=== PATIENT | male | born 1975 | race Hispanic/Latino ===

== ENCOUNTER 2016-12-01 08:01 | Emergency (ER) | payer OTHER ==
[~2016-12-01] VITALS: Ht 182.9 cm; Wt 77.1 kg
[~2016-12-01 08:01] MED LIST: FLEXERIL10 MG PO; GOOD SENSE IBU200 MG PO; HYDROCHLOROTHIA25 M1 PO; HYDRODIURIL 2525 MG PO; LOPRESSOR50 M1 PO; MEDROL4 MG PO; METOPROLOL TART50 MG PO; MOTRIN800 MG PO; NORCO 325 MG-51 TAB PO; NORCO 5-325 TA1 EACH PO; NORVASC10 M1 PO; OXYCONTIN10 MG PO; PROAIR HFA0.09 MG/Ac INH
[2016-12-01 08:04] VITALS: BP 165/90
--- NOTE | 2016-12-01 08:15 | ED EYE COMPLAINT ---
History of Present Illness General Chief Complaint: Eye Problems Stated Complaint: LFT EYE FB AT WORK ? METAL Source: patient, old records Exam Limitations: no limitations Vital Signs & Intake/Output Vital Signs & Intake/Output Vital Signs Date Time Temp Pulse Resp B/P B/P Pulse O2 O2 Flow FiO2 Mean Ox Delivery Rate 12/01 0804 97.8 86 16 165/90 97 Room Air Allergies Coded Allergies: morphine (ITCHING 12/01/16) acetaminophen (From PERCOCET) (Intermediate, NAUSEA 02/02/16) oxycodone (From PERCOCET) (Intermediate, NAUSEA 02/02/16) Reconcile Medications Acetaminophen/Hydrocodone Bi ([place] 325 MG-5 MG) 1 TAB TAB 1 TAB PO Q6HR PRN BREAKTHROUGH PAIN Albuterol Sulfate (Proair Hfa) 0.09 MG/Actuation HANNA 2 PUFF INH DAILY PRN ASTHMA (Reported) Amlodipine Besylate (Norvasc) 10 MG TABLET 1 TAB PO DAILY HTN CYCLOBENZAPRINE HCL (Flexeril) 10 MG TABLET 1 TAB PO TID PAIN Hydrochlorothiazide (Hydrodiuril 25 MG Tab) 25 MG TABLET 1 TAB PO DAILY BP ( Reported) Hydrochlorothiazide 25 MG TABLET 1 TAB PO DAILY HTN Hydrocodone/Acetaminophen ([place] 5-325 Tablet) 1 EACH TABLET 1 TAB PO TIDPRN PRN PAIN Ibuprofen 200 MG TABLET 4 TAB PO PRN PAIN (Reported) Ibuprofen (Motrin) 800 MG TAB 1 TAB PO Q6HR PRN PAIN Ketorolac Tromethamine (Acular) 0.5 % DROPS 1 GTT OPH 4 TIMES/DAY pain Methylprednisolone (Medrol) 4 MG TAB 1 TAB PO AD INFLAMMATION 4 MG mEDROL dOSEPAK DIRECTED Metoprolol Tartrate 50 MG TABLET 1 TAB PO BID BP (Reported) Metoprolol Tartrate (Lopressor) 50 MG TABLET 1 TAB PO DAILY HTN Oxycodone Cr (OxyContin) 10 MG TAB.ER.12H 1 TAB PO TID PRN PAIN Polytrim (Polytrim Eye Drops) 10,000 UNIT-1 MG/ML DROPS 1 GTT OPH Q6 corneal abraion Triage Note: 41 Y/O MALE C/O ? PIECE OF METAL IN L EYE; STATES HE FELT IT GO INTO EYE YESTERDAY AND THOUGHT HE FLUSHED IT OUT BUT CONTINUES TO FEEL PAIN TODAY. +TEARING. 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 yes Onset: Abrupt Duration: day(s): (1), constant Timing: recent history Injury Environment: work Severity: mild Severity Numbers: 5 No Modifying Factors: none Left Eye Associated Symptoms: burning, itching, pain Right Eye Associated Symptoms: DENIES HPI: 41-year-old male with history of hypertension presents to ER for evaluation complaining of left eye pain and foreign body sensation to the eye since yesterday afternoon. 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 Patient denies any vision changes or loss. He denies any right eye symptoms. He states he rinsed his eye out yesterday however the pain has persisted. No other modifying factors or associated symptoms otherwise Past History Travel History Traveled to [place] past 21 day No Medical History Any Pertinent Medical History? 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 No Review of Systems Review of Systems Constitutional: Reports: see HPI. All Other Systems: Reviewed and Negative Comments Review of systems: See HPI, All other systems negative. Constitutional, no chills no fever, no malaise HEENT: No visual changes no sore throat no congestion, Cardiovascular: No chest pain , no palpitation Skin: no rashes, no change in skin Respiratory: No dyspnea no cough no sputum GI: No nausea no vomiting, no diarrhea, : No dysuria No hematuria, no frequency, no discharge Muscle skeletal: No joint pain, no joint swelling, no back pain Neurologic: no headache Psych: No stress Heme/endocrine: No bruising Immunology: No lymphadenopathy Physical Exam General Appearance: well developed/nourished, no apparent distress, alert, awake General Inspection: normal inspection Eyelid: everted for exam, foreign body under eyelid Conjunctiva/Sclera: normal inspection, NO RUST RING, NO OTHER VISUALIZED FB Cornea: examined w/fluorescein, abrasion EOM: intact Pupil: normal accommodation, normal pupil, PERRL General Inspection: normal inspection Eyelid: normal inspection Conjunctiva/Sclera: normal inspection Cornea: normal inspection EOM: intact Pupil: normal accommodation, normal pupil, PERRL Physical Exam Comments: Well-developed well-nourished patient in no apparent distress. HEENT: Atraumatic, extraocular motion intact Neck: Supple, FROM Back: FROM Cardiovascular: Regular rate and rhythms no murmurs rubs Respiratory: No respiratory distress. Patient speaking in full complete sentences. Breath sounds clear to auscultation bilaterally: NO W/R/R Extremities: full range of motion Neuro: awake, alert, and oriented to person, place and time. There were no obvious focal neurologic abnormalities. Skin: Warm & dry;No appreciable rash on exposed skin Psych: Mood affect normal, normal memory normal judgment. Progress Differential Diagnosis: corneal abrasion, corneal foreign body, conjunctivitis, glaucoma Plan of Care: The eye was anesthetized with tetracaine drops, a Q-tip was run under both the upper and lower eyelid several times there is a small metallic foreign body removed from the lateral upper left eyelid, floUROSCEIN was then applied-and there was a visualized corneal abrasion noted to the lateral aspect. Patient tolerated procedure well I long discussion with the patient regarding his results I discussed with him that there is still the possibility of a foreign body not seen on examination he is feeling improved at this time however discussed with him that if he redevelops pain or has any other concerns to return to the ER immediately or follow up with food and beverage assistant Dr. TRIANA today or tomorrow. Prescription for Acular and Polytrim eyedrops provided he understands and feels comfortable to plan Departure Departure Time of Disposition: 827 Disposition: HOME OR SELF CARE Condition: Stable Clinical Impression Primary Impression: Corneal abrasion Secondary Impressions: Eye foreign body Referrals: SOCRATES CORRAL APRN (PCP/Family) KONG LOMAX,GUI Walters Additional Instructions: ACULAR EYE DROPS FOR PAIN, POLYTRIM EYE DROPS DISCUSSED FOR PROPHYLAXIS. As discussed the possibility of a foreign body not seen on examination still exists follow-up with Dr. Triana food and beverage assistant tomorrow if your symptoms persist or return to the ER with any concerns. Departure Forms: Customer Survey Employee Industrial Accident General Discharge Information Prescriptions: Current Visit Scripts Ketorolac Tromethamine (Acular) 1 GTT OPH 4 TIMES/DAY #5 ML Polytrim (Polytrim Eye Drops) 1 GTT OPH Q6 #10 ML
[2016-12-01] MEDS ORDERED: ACULAR5 ML OPH (08:29)
[2016-12-01] MEDS ORDERED: POLYTRIM EYE DR10 ML OPH (08:29)
== END 2016-12-01 08:47 ==
LOC: ERH 08:01
DX: T15.02XA Foreign body in cornea, left eye, initial encounter (principal); S05.02XA Injury of conjunctiva and corneal abrasion without foreign body, left eye, initial encounter; Y93.89 Activity, other specified; Y92.89 Other specified places as the place of occurrence of the external cause

== ENCOUNTER 2017-09-22 15:02 | Emergency (ER) | payer OTHER ==
[~2017-09-22] VITALS: Ht 180.3 cm; Wt 81.6 kg
[~2017-09-22 15:02] MED LIST changes: +ACULAR5 ML OPH; +POLYTRIM EYE DR10 ML OPH
--- NOTE | 2017-09-22 15:58 | RADIOLOGY REPORT ---
EXAMINATION: XR HAND, LEFT CLINICAL INFORMATION: Crush injury with laceration COMPARISON: None TECHNIQUE: PA, lateral, and oblique views of the left hand. FINDINGS: Comminuted fracture distal shaft proximal phalanx second finger with cortical width displacement and dorsal angulation involving the distal fragments. Fracture line appears to extend to the articular surface PIP joint. There is overlying soft tissue swelling. IMPRESSION: Comminuted fracture with dorsal angulation and displacement distal shaft proximal phalanx second finger.
--- NOTE | 2017-09-22 16:43 | ED HAND/WRIST INJURY COMPLAINT ---
History of Present Illness General Chief Complaint: Laceration Procedure Stated Complaint: L INDEX FINGER LAC Source: patient Exam Limitations: no limitations Vital Signs & Intake/Output Vital Signs & Intake/Output Vital Signs Date Time Temp Pulse Resp B/P B/P Pulse O2 O2 Flow FiO2 Mean Ox Delivery Rate 09/22 1833 98.0 86 18 154/94 98 Room Air 09/22 1512 97.5 93 18 163/106 97 Room Air ED Intake and Output 09/23 0000 09/22 1200 Intake Total Output Total Balance Patient 180 lb Weight Weight Reported by Patient Measurement Method Allergies Coded Allergies: morphine (ITCHING 12/01/16) acetaminophen (From PERCOCET) (Intermediate, NAUSEA 02/02/16) oxycodone (From PERCOCET) (Intermediate, NAUSEA 02/02/16) Reconcile Medications Acetaminophen/Hydrocodone Bi ([place] 325 MG-5 MG) 1 TAB TAB 1 TAB PO Q6HR PRN BREAKTHROUGH PAIN Albuterol Sulfate (Proair Hfa) 0.09 MG/Actuation HANNA 2 PUFF INH DAILY PRN ASTHMA (Reported) Amlodipine Besylate (Norvasc) 10 MG TABLET 1 TAB PO DAILY HTN Cephalexin (Keflex) 500 MG CAPSULE 1 CAP PO TID CELLULITIS CYCLOBENZAPRINE HCL (Flexeril) 10 MG TABLET 1 TAB PO TID PAIN Hydrochlorothiazide (Hydrodiuril 25 MG Tab) 25 MG TABLET 1 TAB PO DAILY BP ( Reported) Hydrochlorothiazide 25 MG TABLET 1 TAB PO DAILY HTN Hydrocodone/Acetaminophen ([place] 5-325 Tablet) 5 MG-325 MG TABLET 1-2 TAB PO Q4-6 PRN PRN PAIN Hydrocodone/Acetaminophen ([place] 5-325 Tablet) 1 EACH TABLET 1 TAB PO TIDPRN PRN PAIN Ibuprofen 200 MG TABLET 4 TAB PO PRN PAIN (Reported) Ibuprofen (Motrin) 800 MG TAB 1 TAB PO Q6HR PRN PAIN Ketorolac Tromethamine (Acular) 0.5 % DROPS 1 GTT OPH 4 TIMES/DAY pain Methylprednisolone (Medrol) 4 MG TAB 1 TAB PO AD INFLAMMATION 4 MG mEDROL dOSEPAK DIRECTED Metoprolol Tartrate 50 MG TABLET 1 TAB PO BID BP (Reported) Metoprolol Tartrate (Lopressor) 50 MG TABLET 1 TAB PO DAILY HTN Oxycodone Cr (OxyContin) 10 MG TAB.ER.12H 1 TAB PO TID PRN PAIN Polytrim (Polytrim Eye Drops) 10,000 UNIT-1 MG/ML DROPS 1 GTT OPH Q6 corneal abraion Triage Note: PT FROM WORK C/O LAC/INJURY TO LEFT INDEX FINGER. 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 PT HAS SMALL LAC TO LEFT INDEX FINGER, BLEEDING CONTROLLED PRIOR TO ARRIVAL, PT PROVIDED WITH NEW BANDAGE. PTS VSS BESIDES BP, ELEVATED 163/106, PT STATES HE RAN OUT OF BP MEDICATION YESTERDAY. PAIN 04/26. PT STATES LAST TETAUNUS WAS WITHIN 1 YEAR. Triage Nurses Notes Reviewed? yes Occurred: just prior to arrival Duration: hour(s): (1), constant, continues in ED, getting worse Timing: single episode today Injury Environment: work Severity: moderate, severe Severity Numbers: 10 Pain/Injury Location: Left: 2nd finger. Context: blow, crush Method of Injury: direct blow No Modifying Factors: none Associated Symptoms: swelling HPI: 42-year-old male past medical history of hypertension presents for evaluation of a laceration to his left index finger. Patient states that he was at work using a hammer when he accidentally hit the proximal segment of the left index finger. He caused a small laceration to the area. He reports associated swelling and pain with range of motion. No numbness or tingling. No other injuries. He is unsure when his last tetanus shot was. (Jethro Phan) Past History Travel History Traveled to [place] past 21 day No Medical History Any Pertinent Medical History? 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 No (Jethro Phan) Review of Systems Review of Systems Constitutional: Reports: no symptoms. EENTM: Reports: no symptoms. Respiratory: Reports: no symptoms. Cardiovascular: Reports: no symptoms. GI: Reports: no symptoms. Genitourinary: Reports: no symptoms. Musculoskeletal: Reports: joint pain, joint swelling, muscle pain. Skin: Reports: see HPI (laceration). Neurological/Psychological: Reports: no symptoms. Hematologic/Endocrine: Reports: no symptoms. Immunologic/Allergic: Reports: no symptoms. All Other Systems: Reviewed and Negative (Jethro Phan) Physical Exam Physical Exam General Appearance: well developed/nourished, no apparent distress, alert, awake Head: atraumatic, normal appearance Eyes: Bilateral: normal appearance, EOMI. Ears, Nose, Throat: hearing grossly normal Neck: normal inspection, supple, full range of motion Cardiovascular/Respiratory: no respiratory distress Forearm Left: normal range of motion, normal inspection Forearm Right: normal range of motion, normal inspection Wrist Left: normal range of motion, normal inspection Wrist Right: normal range of motion, normal inspection Hand Left: lacerations, limited range of motion, evidence of injury, swelling, tender, 2nd finger, there is soft tissue swelling around the proximal segment of the second digit. There is a 1 cm linear laceration located over the dorsum of the proximal segment. There is also a 0.5 cm linear laceration located along the lateral aspect of the proximal segment. Small amount of active bleeding. Cap refill less than 2 seconds. Neurovascular supply is intact to the second digit. Range of motion is reduced due to pain. Hand Right: normal inspection, normal range of motion Neurologic/Tendon: normal sensation, normal motor functions, normal tendon functions, responds to pain, no evidence tendon injury, no pulse deficit Skin: intact, normal color, warm/dry (Jethro Phan) Progress Differential Diagnosis: contusion, dislocation, fracture, septic arthritis, sprain, tenosynovitis Plan of Care: Patient seen and evaluated. He had his left index finger with a hammer. There is a laceration and soft tissue swelling. X-ray shows a significant displaced fracture of the proximal segment. Case was discussed with plastic surgery. They recommend repairing the wound placing into a splint and following up with plastic surgery on Tuesday. Tetanus was updated. The wound was flushed with sterile water. Betadine was applied. A digital block was applied to the finger for pain control. 3 5-0 simple rapid sutures used to approximate the laceration on the dorsum and one suture on the lateral aspect. The finger was placed in an anatomical position to reduce displacement of the fracture and splinted. Sterile dressing applied. Discussed wound care procedures in detail. Apply ice 15-20 minutes every few hours. Patient be covered with cephalexin due to open fracture. Make a follow-up appointment with plastic surgery on Tuesday. Tylenol or Profen for pain and [place] for severe pain. Discussed return precautions in detail. Return with any concerns. Patient appears well he agrees. Diagnostic Imaging: Viewed by Me: Radiology Read. Discussed w/RAD: Radiology Read. Radiology Impression: TIENT: TALAT WILBURN PRESENT AGE : 42 PATIENT ACCOUNT NO: [id number] : 74 LOCATION: [facility] ORDERING PHYSICIAN: Jethro CENTENO SERVICE DATE: 09/22/17 EXAM TYPE: RAD - XRY- HAND, LEFT EXAMINATION: XR HAND, LEFT CLINICAL INFORMATION: Crush injury with laceration COMPARISON: None TECHNIQUE: PA, lateral, and oblique views of the left hand. FINDINGS: Comminuted fracture distal shaft proximal phalanx second finger with cortical width displacement and dorsal angulation involving the distal fragments. Fracture line appears to extend to the articular surface PIP joint. There is overlying soft tissue swelling. IMPRESSION: Comminuted fracture with dorsal angulation and displacement distal shaft proximal phalanx second finger. DICTATED BY: Crispin Raines MD DATE/TIME DICTATED:09/22/171551 WEBFOCUS DEVELOPER:KRISTINA DATE/TIME TRANSCRIBED:09/22/171551 CONFIDENTIAL, DO NOT COPY WITHOUT APPROPRIATE AUTHORIZATION. <Electronically signed in Other Vendor System> (Tyler CENTENO,Jethro) Departure Departure Disposition: HOME OR SELF CARE Condition: Stable Clinical Impression Primary Impression: Open fracture of finger of left hand Qualifiers: Encounter type: initial encounter Finger: index finger Phalanx: proximal Fracture alignment: displaced Qualified Code: S62.611B - Displaced fracture of proximal phalanx of left index finger, initial encounter for open fracture Referrals: Treva Mendez APRN (PCP/Family) Edvin LOMAX,Elan Additional Instructions: Rest, keep the area clean and dry. Tylenol ibuprofen as needed for pain. [place] for severe pain only this may cause drowsiness. Take antibiotics as directed for the full course. Change dressing once daily. Make a follow-up appointment with provided plastic surgeon Dr. Pardo as soon as possible. Monitor symptoms return with any concerns. Departure Forms: Customer Survey General Discharge Information Prescriptions: Current Visit Scripts Cephalexin (Keflex) 1 CAP PO TID #30 CAP Hydrocodone/Acetaminophen ([place] 5-325 Tablet) 1-2 TAB PO Q4-6 PRN PRN PAIN #10 TAB (Jethro Phan) PA/POST HOLE DIGGER Co-Sign Statement Statement: ED Attending supervision documentation- [] I saw and evaluated the patient. I have also reviewed all the pertinent lab results and diagnostic results. I agree with the findings and the plan of care as documented in the PA's/POST HOLE DIGGER's documentation. [X] I have reviewed the ED Record and agree with the PA's/POST HOLE DIGGER's documentation. [] Additions or exceptions (if any) to the PAs/POST HOLE DIGGER's note and plan are summarized below: [] (Oli LOMAX,Darline) Procedures Laceration/Wound Repair Laceration/Wound Repair: Wound Location: upper extremity (left index finger) Wound's Depth, Shape: linear, subcutaneous Wound Length (cm): 1 Wound Explored: clean, irrigated extensively Irrigated w/ Saline (ccs): 300 Betadine Prep? Yes Anesthesia: digit block Volume Anesthetic (ccs): 5 Wound Debrided: minimal Wound Repaired With: sutures Suture Size/Type: 5:0, nylon Number of Sutures: 4 Layer Closure? No Splint Applied? Yes By Who? by me Type of Splint Applied: long finger splint Sling Applied? No Tetanus Status: not up to date (Jethro Phan)
[2017-09-22] MEDS ORDERED: NORCO 5-325 TA1 EACH PO (18:21)
[2017-09-22] MEDS ORDERED: KEFLEX500 M1 PO (18:21)
[2017-09-22 18:33] VITALS: BP 154/94
== END 2017-09-22 18:26 ==
LOC: ERH 15:02
DX: S62.611B Displaced fracture of proximal phalanx of left index finger, initial encounter for open fracture (principal); W27.8XXA Contact with other nonpowered hand tool, initial encounter; Y93.89 Activity, other specified; Y92.9 Unspecified place or not applicable
CPT/HCPCS: 73130-LT; 90471; 90714; J2001